=== PATIENT | female | born 1975 | race Caucasian/White ===

== ENCOUNTER → 2020-12-18 | Outpatient (CLI) | payer OTHER | LOC: M LAB 19:02 | PROVIDERS: ATTEND Physician Assistant | DX: Z02.1 Encounter for pre-employment examination (principal) ==

== ENCOUNTER 2021-01-05 22:15 | Emergency (ER) | payer OTHER ==
[~2021-01-05] VITALS: Ht 162.6 cm; Wt 82.6 kg
--- NOTE | 2021-01-05 23:11 | REPVR ---
PROCEDURE INFORMATION: Exam: CT Head without Contrast Exam date and time: 01/05/21 (10:48pm) Age: 45 years old Clinical indication: Altered mental status / memory loss TECHNIQUE: Imaging protocol: Computed tomography of the head without contrast. Radiation optimization: All CT scans at this facility use at least one of these dose optimization techniques: automated exposure control; mA and/or kV adjustment per patient size (includes targeted exams where dose is matched to clinical indication); or iterative reconstruction. COMPARISON: No relevant prior studies available FINDINGS: Brain: Unremarkable. No acute hemorrhage. Unremarkable white matter. No mass effect. Cerebral ventricles: No ventriculomegaly. Paranasal sinuses: Visualized sinuses are unremarkable. No air-fluid levels. Mastoid air cells: Visualized mastoid air cells are well aerated. Bones/joints: Unremarkable. No acute fracture. Soft tissues: Unremarkable. IMPRESSION: No acute pathology. Electronically signed by: Vera Phillips On 01/05/2021 23:10:58 PM
[2021-01-05 23:20] LABS: BASO # 0.1 10^3/uL (0.0-0.2); BASO % 1.2 % (0.0-1.0); EOS # 0.2 10^3/uL (0.0-0.5); EOS % 3.6 % (0.0-3.0); HEMOGLOBIN 12.9 g/dl (12.0-15.5); LYMPH % 29.4 % (24.0-44.0); MEAN CORPUSCULAR HEMOGLOBIN 31.2 pg (27.0-33.0); MEAN CORPUSCULAR HGB CONC 33.1 g/dl (32.0-36.5); MEAN CORPUSCULAR VOLUME 94.4 fl (80.0-96.0); MONO # 0.7 10^3/uL (0.0-0.8); MONO % 10.4 % (2.0-8.0); NEUTROPHILS # 3.7 10^3/uL (1.5-8.5); NEUTROPHILS % 55.3 % (36.0-66.0); PLATELET COUNT, AUTOMATED 275 10^3/uL (150-450); RED BLOOD COUNT 4.13 10^6/uL (4.00-5.40); WHITE BLOOD COUNT 6.7 10^3/uL (4.0-10.0)
[2021-01-05 23:58] LABS: OSMOLALITY SERUM 289 MOSM/KG (275-295)
[2021-01-05 23:59] LABS: ACETAMINOPHEN LEVEL < 2.0 UG/ML (10.0-30.0); ALBUMIN 3.6 GM/DL (3.2-5.2); ALT/SGPT 31 U/L (12-78); BILIRUBIN,DIRECT < 0.1 MG/DL (0.0-0.2); BILIRUBIN,TOTAL 0.2 MG/DL (0.2-1.0); BLOOD UREA NITROGEN 6 MG/DL (7-18); CALCIUM LEVEL 8.8 MG/DL (8.5-10.1); CARBON DIOXIDE LEVEL 28 MEQ/L (21-32); CHLORIDE LEVEL 108 MEQ/L (98-107); CK-MB VALUE MASS < 1.0 NG/ML (<3.6); CPK CREATINE PHOSPHOKINASE 57 U/L (26-192); CREATININE FOR GFR 0.62 MG/DL (0.55-1.30); ETHYL ALCOHOL (ETHANOL) 0.007 % (0.000-0.010); GLOMERULAR FILTRATION RATE > 60.0 (>58); GLUCOSE, FASTING 103 MG/DL (70-100); MB/CK RELATIVE INDEX 1.75 (< OR =4); POTASSIUM SERUM 3.9 MEQ/L (3.5-5.1); SODIUM LEVEL 142 MEQ/L (136-145); TOTAL PROTEIN 6.7 GM/DL (6.4-8.2); TROPONIN I < 0.02 NG/ML (< 0.10)
[2021-01-06] MEDS: NS 1,000 ML IV ONE (00:24)
[2021-01-06 00:54] LABS: AMPHETAMINES LEVEL URINE NEGATIVE (NEGATIVE); BARBITURATES URINE NEGATIVE (NEGATIVE); BENZODIAZEPINES URINE NEGATIVE (NEGATIVE); CANNABINOIDS URINE NEGATIVE (NEGATIVE); COCAINE METABOLITE URINE NEGATIVE (NEGATIVE); METHADONE URINE NEGATIVE (NEGATIVE); OPIATES URINE NEGATIVE (NEGATIVE); PHENCYCLIDINE URINE NEGATIVE (NEGATIVE)
[2021-01-06 02:34] LABS: INR 0.99; PROTHROMBIN TIME 13.5 SECONDS (12.7-14.5)
[2021-01-06 02:35] LABS: PARTIAL THROMBOPLASTIN TIME 27.9 SECONDS (25.9-37.0)
[2021-01-06 05:32] VITALS: BP 112/58
--- NOTE | 2021-01-07 18:49 | ECGEPIP ---
[facility] - ED Test Date: 2021-01-05 Pat Name: LYNETTE BROWN Department: Room: - Gender: Female Gauger Delivery: : 1975 Requested By: ANA Link Order Number: [id number] Reading MD: Radha Buitrago Measurements Intervals [place] Rate: 57 P: 9 UT: 130 QRS: 74 QRSD: 84 T: 42 QT: 444 QTc: 432 Interpretive Statements Sinus bradycardia with marked sinus arrhythmia NSTTW abnormalities No prior Electronically Signed on 01-07-2021 18:49:22 EDT by Radha Buitrago
== END 2021-01-06 05:44 | disposition home or self-care (01) ==
LOC: M ED 22:15
DX: F43.0 Acute stress reaction (principal); F17.210 Nicotine dependence, cigarettes, uncomplicated